=== PATIENT | female | born 1970 | race Caucasian/White ===

== ENCOUNTER → 2024-10-19 | Outpatient (CLI) | payer MEDICAID, SELFPAY ==
[2024-10-19 10:35] LABS: Bacteria 0 SEEN /hpf (None Seen); Mucous, Urine 0 SEEN /hpf (<or=2+); Red Blood Cells-Urine 0 SEEN /hpf (0-5); White Blood Cells 0 SEEN /hpf (0-5)
[2024-10-19 12:46] LABS: Absolute Lymphocyte Count 1.33 X10^3/uL (0.83-4.51); Absolute Neutrophil Count 4.8 X10^3/uL (2.0-7.7); Basophil# 0.04 X10^3/uL; Basophil% 0.6 % (0-1); Eosinophil# 0.18 X10^3/uL; Eosinophils% 2.6 % (0-5); Hematocrit 38.8 % (37-47); Hemoglobin 12.3 g/dL (12.0-15.0); Lymphocyte # 1.33 X10^3/ul (0.83-4.51); Lymphocyte % 19.3 % (19-41); Mean Corp Hgb Conc 31.7 g/dL (32-36); Mean Corpuscular Hgb 30.4 pg (27.0-32.0); Mean Corpuscular Volume 95.8 fL (81-99); Mean Platelet Vol. 9.5 fl (6.2-12.0); Monocyte# 0.54 X10^3/uL; Monocyte% 7.8 % (0-10); NRBC Flagged by Analyzer 0 % (0-5); Neutrophil # 4.79 X10^3/uL (2.7-7.7); Neutrophil % 69.4 % (47-70); Platelet Count 397 K/mm3 (150-450); RBC Distribution Width CV 13.2 % (11.6-14.6); RBC Distribution Width SD 46.6 fl (35.1-43.9); Red Blood Count 4.05 M/mm3 (4.2-5.4); White Blood Count 6.9 K/mm3 (4.4-11.0)
[2024-10-19 12:51] LABS: Color, Urine Yellow (Yellow); Glucose, Dipstick Normal (Normal); Ketone-Dipstick Negative (Negative); Leukocyte Esterase-Dipstick Negative /ul (Negative); Nitrite-Dipstick Negative (Negative); Occult Blood-Urine Negative /ul (Negative); Protein-Dipstick 15 mg/dl (Negative); Urine Bilirubin Dipstick Negative (Negative); Urine Clarity Clear (Clear); Urine Urobilinogen Normal (Normal)
[2024-10-19 12:58] LABS: Squamous Epithelial Cells - UA 0-5 SEEN /hpf (5-10)
[2024-10-19 13:44] LABS: ALB/GLOB Ratio 1.4 RATIO (0.9-2.4); AST(SGOT) 58 U/L (<=31); Alanine Aminotransfer ALT/SGPT 86 U/L (<=34); Albumin, Serum 4.3 g/dL (3.5-5.0); Alkaline Phosphatase 72 U/L (35-104); Anion Gap 12 (5-15); BUN 20 mg/dL (4-19); BUN/Creat Ratio 26.4 RATIO (10-20); Calcium,Total 9.6 mg/dL (7.6-11.0); Carbon Dioxide 26.9 mmol/L (21.0-32.0); Chloride 100 mmol/L (98-108); Cholesterol 178 mg/dL (<=200); Creatinine, Serum 0.75 mg/dL (0.70-1.20); EST Glomerular Filtration Rate 94 (>60); Globulin 3.1 g/dL (2.2-4.2); Glucose 96 mg/dL (70-99); High Density Lipoprotein 60 mg/dL; Low Density Lipoprotein Calc. 97 mg/dL; Potassium 3.9 mmol/L (3.3-5.1); Protein, Total 7.4 g/dL (5.9-8.4); Sodium Level 139 mmol/L (133-145); Total Bilirubin 0.22 mg/dL (0.00-1.30); Triglycerides 110 mg/dL; Very Low Density Lipoprotein 22 mg/dL (5-40); Vitamin B12 1530 pg/mL (180-914); Vitamin D,25 Hydroxy 79.4 ng/mL (30-100); cholesterol:hdl ratio screen 2.99
[2024-10-23 13:35] LABS: Hepatitis B Surface Antigen Nonreactive (Nonreactive); Hepatitis C Antibody Nonreactive (Nonreactive)
== END | disposition home or self-care (01) ==
LOC: MFPLAB 10:22
PROVIDERS: PCP Family Medicine; Referring Provider Family Medicine; Visit Provider Family Medicine
DX: Z00.00 Encounter for general adult medical examination without abnormal findings (principal); R53.83 Other fatigue
CPT/HCPCS: 86706; 36415; 80053; 80061; 81001; 82306; 82607; 84439; 84443; 85025; 86803; 87340

== ENCOUNTER → 2024-11-01 | Outpatient (CLI) | payer MEDICAID, SELFPAY ==
[2024-11-01 14:00] LABS: Hepatitis B Surface Antigen Nonreactive (Nonreactive); Hepatitis C Antibody Nonreactive (Nonreactive)
== END | disposition home or self-care (01) ==
LOC: MFPLAB 10:31
PROVIDERS: PCP Family Medicine; Referring Provider Family Medicine; Visit Provider Family Medicine
DX: R79.89 Other specified abnormal findings of blood chemistry (principal)
CPT/HCPCS: 36415; 86706; 86803; 87340

== ENCOUNTER → 2024-11-02 | Outpatient (CLI) | payer MEDICAID, SELFPAY ==
--- NOTE | 2024-11-02 11:09 | BI_ITS ---
EXAM: SCRN MAMM (CAD)W/BRIAN BILAT DATE: 11/02/2024 CLINICAL HISTORY: F, Age 54 y/o , SCREENING TECHNIQUE: SCRN MAMM (CAD)W/BRIAN BILAT COMPARISON: No priors available FINDINGS: TISSUE DENSITY: There are scattered areas of fibroglandular density. There are bilateral retropectoral saline breast implants. Bilateral Breast Mammographic Findings: No significant masses, calcifications or other abnormalities are identified. BI/SCRN MAMM (CAD)W/BRIAN BILAT IMPRESSION: There is no mammographic evidence of malignancy. OVERALL FINAL ASSESSMENT BI-RADS 1: NEGATIVE. RECOMMENDATION: Routine annual follow-up in 1 Year A letter with findings and recommendations will be mailed to the patient. Reading Location: [id number]
== END | disposition home or self-care (01) ==
LOC: OPBI 11:07
PROVIDERS: PCP Family Medicine; Referring Provider Family Medicine; Visit Provider Family Medicine
DX: Z12.31 Encounter for screening mammogram for malignant neoplasm of breast (principal)
CPT/HCPCS: 77063; 77067

== ENCOUNTER → 2024-11-10 | Outpatient (CLI) | payer MEDICAID, SELFPAY ==
--- NOTE | 2024-11-10 14:01 | CT_ITS ---
PROCEDURE: LOW DOSE CT LUNG SCREENING 11/10/2024 REASON FOR EXAM: SMOKER TECHNIQUE: LOW DOSE CT LUNG SCREENING Coronal and Sagittal reconstruction series were provided. One or more dose reduction techniques were used (e.g., Automated exposure control, adjustment of the mA and/or kV according to patient size, use of iterative reconstruction technique). REFERENCE LINK: [employer] Lung-RADS RADIATION DOSE SUMMARY: CTDlvol: 3 mGy DLP: 110 mGycm COMPARISON: No FINDINGS: Central airways are patent. Mild bronchial wall thickening. Well inflated lungs. No consolidation, effusion, or pneumothorax. On the left, no suspicious lung nodules. On the right, no suspicious lung nodules. Unremarkable base of neck and axilla. Normal heart size. Normal esophagus. No acute vascular pathology. Thoracic spine scoliosis and degeneration. No acute chest wall findings. No acute upper abdominal findings. CT/Low Dose CT Lung Screening IMPRESSION: No pulmonary nodules. Lung-RADS Category: 1 Other Significant Findings: Reading Location: [id number]
== END | disposition home or self-care (01) ==
LOC: CT 13:59
PROVIDERS: PCP Family Medicine; Referring Provider Family Medicine; Visit Provider Family Medicine
DX: Z87.891 Personal history of nicotine dependence (principal)
CPT/HCPCS: 71271

== ENCOUNTER → 2024-11-15 | Outpatient (CLI) | payer MEDICAID, SELFPAY ==
[2024-11-15 12:28] LABS: AST(SGOT) 26 U/L (<=31); Alanine Aminotransfer ALT/SGPT 21 U/L (<=34); Albumin, Serum 4.3 g/dL (3.5-5.0); Alkaline Phosphatase 58 U/L (35-104); Anion Gap 12 (5-15); BUN 17 mg/dL (4-19); BUN/Creat Ratio 21.6 RATIO (10-20); Calcium,Total 9.4 mg/dL (7.6-11.0); Carbon Dioxide 23.5 mmol/L (21.0-32.0); Chloride 102 mmol/L (98-108); Globulin 2.9 g/dL (2.2-4.2); Glucose 90 mg/dL (70-99); Potassium 4.1 mmol/L (3.3-5.1)
--- OUTSIDE RECORDS SUMMARY | 2024-11-15 19:14 | XMS RPT_ITS | CCD ---
Author Organization [facility]iniSyin Care Team Providers Care Aircraft Structure Mechanic Name Role Phone Nikia BARAHONA, Dr. Adal Nogueira Primary Care Provider Nikia BARAHONA, Dr. Adal Nogueira Attending Provider [phone] Nikia BARAHONA, Dr. Adal Nogueira Referring Provider Adal Montejo Referring Unavailable Adal Montejo Attending Unavailable Adal Montejo Primary Care Unavailable Adal Montejo Referring Unavailable Adal Montejo Attending Unavailable Adal Montejo Primary Care Unavailable Adal Montejo Referring Unavailable Adal Montejo Attending Unavailable Adal Montejo Primary Care Unavailable Adal Montejo Referring Unavailable Adal Montejo Attending Unavailable Adal Montejo Primary Care Unavailable MIKAELA BARAHONA, DR NORIEGA Attending Unavailjazz nogueira Problems Problem Classification Problem Date Documented Da te Episodic/Chronic Other screening for suspected conditions (not mental disorders or infectious disease) (4 sources) Encounter for screening mammogram for malignant neoplasm of breast; Translations: [Other specified abnormal findings of blood chemistry] Onset: 11-07-2024 Episodic Screening and history of mental health and substance abuse codes (1 source) Personal history of nicotine dependence; Translations: [Personal history of nicotine dependence] Onset: 11-10-2024 Episodic Results Test Name Value Interpretation Reference Range Facility Low Dose CT Lung Screeningon 11-10-[address] Lung Screening [facility] Imaging Services [address] [place], [place] [id number] Low Dose CT Lung Screening MR#: [id number] Acct: [id number] Name: REI MARK Rep #: [id number] : 1970 F 54 From: Rodrigo Lucas MD PCP: Dr. Adal Montejo MD Status: REG CLI Study: Low Dose CT Lung Screening Date of Exam: 11/10 Exam# [id number] Ordering Dr: Adal Montejo MD PROCEDURE: LOW DOSE CT LUNG SCREENING 11/10/2024 REASON FOR EXAM: SMOKER TECHNIQUE: LOW DOSE CT LUNG SCREENING Coronal and Sagittal reconstruction series were provided. One or more dose reduction techniques were used (e.g., Automated exposure control, adjustment of the mA and/or kV according to patient size, use of iterative reconstruction technique). REFERENCE LINK: [facility] Lung-RADS RADIATION DOSE SUMMARY: CTDlvol: 3 mGy DLP: 110 mGycm COMPARISON: No FINDINGS: Central airways are patent. Mild bronchial wall thickening. Well inflated lungs. No consolidation, effusion, or pneumothorax. On the left, no suspicious lung nodules. On the right, no suspicious lung nodules. Unremarkable base of neck and axilla. Normal heart size. Normal esophagus. No acute vascular pathology. Thoracic spine scoliosis and degeneration. No acute chest wall findings. No acute upper abdominal findings. CT/Low Dose CT Lung Screening IMPRESSION: No pulmonary nodules. Lung-RADS Category: 1 Other Significant Findings: Reading Location: [facility]2 CC: Dr. Adal Montejo MD Engineering Group Leader: Signed [facility] Breast imaging reportOrdered By: Marcela Mott on 11-03-2024 Study report [facility] Imaging Services [address] [place] [address] SCRN MAMM (CAD)W/BRIAN BILAT MR#: [id number] Acct: [id number] Name: REI MARK Rep #: [id number] : 1970 F 54 From: Mitzi Mott MD PCP: Dr. Adal Montejo MD Status: RE G CLI Study:SCRN MAMM (CAD)W/BRIAN BILAT Date of Exa m: 11/02/24 Exam# [id number] Ordering Dr: Adal Montejo MD EXAM: SCRN MAMM (CAD)W/BRIAN BILAT DATE: 11/02/2024 CLINICAL HISTORY: F, Age 54 y/o , SCREENING TECHNIQUE: SCRN MAMM (CAD)W/BRIAN BILAT COMPARISON: No priors available FINDINGS: TISSUE DENSITY: There are scattered areas of fibroglandular density. There are bilateral retropectoral saline breast implants. Bilateral Breast Mammographic Findings: No significant masses, calcifications or other abnormalities are identified. BI/SCRN MAMM (CAD)W/BRIAN BILAT IMPRESSION: There is no mammographic evidence of malignancy. OVERALL FINAL ASSESSMENT BI-RADS 1: NEGATIVE. RECOMMENDATION: Routine annual follow-up in 1 Year A letter with findings and recommendations will be mailed to the patient. Reading Location: [facility] CC: Dr. Adal Montejo MD ~ Engineering Group Leader: Signed [facility] SCRN MAMM (CAD)W/BRIAN BILATo n 11-02-2024 SCRN MAMM (CAD)W/BRIAN BILAT [facility] Imaging Services [address] [place], [place] [address] SCRN MAMM (CAD)W/BRIAN BILAT MR#: [id number] Acct: [id number] Name: REI AMRK Rep #: [id number] : 1970 F 54 From: Marcela Mott MD PCP: Dr. Adal Montejo MD Status: [facility] Study: SCRN MAMM (CAD)W/BRIAN BILAT Date of Exam: 10/24 Exam# [id number] Ordering Dr: Adal Montejo MD EXAM: SCRN MAMM (CAD)W/BRIAN BILAT DATE: 11/02/2024 CLINICAL HISTORY: F, Age 54 y/o , SCREENING TECHNIQUE: SCRN MAMM (CAD)W/BRIAN BILAT COMPARISON: No priors available FINDINGS: TISSUE DENSITY: There are scattered areas of fibroglandular density. There are bilateral retropectoral saline breast implants. Bilateral Breast Mammographic Findings: No significant masses, calcifications or other abnormalities are identified. BI/SCRN MAMM (CAD)W/BRIAN BILAT IMPRESSION: There is no mammographic evidence of malignancy. OVERALL FINAL ASSESSMENT BI-RADS 1: NEGATIVE. RECOMMENDATION: Routine annual follow-up in 1 Year A letter with findings and recommendations will be mailed to the patient. Reading Location: [id number] CC: Dr. Adal Montejo MD Engineering Group Leader: Signed [facility] Hepatitis B Surface Antibody on 11-01-2024 HEP B Surf Ab Non-Reactive [facility] Comment on above: Result Comment: <8.5 mIU/mL: Non-Reactive 8.5<= x <11.5 mIU/mL: Indeterminate >=11.5 mIU/mL: Reactive Non Reactive: Inconsistent with immunity less than <10 mIU/mL Reactive: Consistent with immunity greater than or equal to 10 mIU/mL Performed By: #### L 506.1001, L503.0106, L3890.6301, L3890.6102 #### [facility] [address] [facility] [place], [address] Hepatitis C Antibodyon 11-01 Hepatitis C Ab Non-Reactive Normal Nonreactive [facility] Comment on above: Result Comment: Reac tive: Presumptive evidence of antibodies to HCV. Follow CDC recommendations for supplemental testing. Non-Reactive: Antibodies to HCV were not detected; does not exclude the possibility of exposure to HCV Reactive Results are presumptive evidence of antibodies to HCV. Follow CDC recommendations for supplemental testing. Order confirmation testing: HCV Quant by PCR testing - HCVPCR #[id number] Non Reactive: < 0.8 Equivocal: >/= 0.8 to < 1.0 Reactive: >/= 1.0 The CDC requires that a reactive/equivocal HCV antibody result be sent out for confirmation. HCV Quant by PCR testing. Performed By: #### L 506.1001, L503.0106, L3890.6301, L3890.6102 #### [facility] [address] [place], [place], [address] L3890.6102on 11-01-2024 HEP B Surf Ag Non-Reactive Normal Nonreactive [facility] Comment on above: Result Comment: Reac tive: Presumptive evidence of HBV. Repeatedly reactive samples must be confirmed using a neutralization test ([employer] HBsAg Confirmatory Test) Non-Reactive: HBsAg not detected; does not exclude the possibility of exposure to HBV Performed By: #### L 506.1001, L503.0106, L3890.6301, L3890.6102 #### [facility] [address] [place], [address] Laboratory - Microbiology an d Antimicrobial susceptibilityOrdered By: Adal Montejo on 11-01-2024 HBV surface Ag Ql (S) Non-Reactive Nonreactive [facility] Comment on above: Reactive: Presumptiv e evidence of HBV. Repeatedly reactive samples must be confirmed using a neutralization test ([employer] HBsAg Confirmatory Test)Non-Reactive: HBsAg not detected; does not exclude the possibility of exposure to HBV Serum hepatitis B virus surf [place] antibody detectionOrdered By: Adal Montejo on 11-01-2024 HBV surface Ab Ql (S) Non-Reactive [facility] Comment on above: <8.5 mIU/mL: Non-Sangeeta ctive8.5<= x <11.5 mIU/mL: Indeterminate>=11.5 mIU/mL: Reactive Non Reactive: Inconsistent with immunity less than <10 mIU/mL Reactive: Consistent with immunity greater than or equal to 10 mIU/mL Hepatitis C Antibodyon 10-23 Hepatitis C Ab Non-Reactive Normal Nonreactive [facility] Comment on above: Order Comment: Order Date: 10/19/24 Order Info: 0786-1 - CMP Order Info: 91019-2 - LIPID Order Info: 3016-3 - TSH Order Info: 3024-7 - T4F Result Comment: Reac tive: Presumptive evidence of antibodies to HCV. Follow CDC recommendations for supplemental testing. Non-Reactive: Antibodies to HCV were not detected; does not exclude the possibility of exposure to HCV Reactive Results are presumptive evidence of antibodies to HCV. Follow CDC recommendations for supplemental testing. Order confirmation testing: HCV Quant by PCR testing - HCVPCR #[id number] Non Reactive: < 0.8 Equivocal: >/= 0.8 to < 1.0 Reactive: >/= 1.0 The CDC requires that a reactive/equivocal HCV antibody result be sent out for confirmation. HCV Quant by PCR testing. Performed By: #### L 506.1001, L503.0106, L3890.6301, L3890.6102 #### [facility] [address] [place], [place], [address] L3890.6102on 10-23-2024 HEP B Surf Ag Non-Reactive Normal Nonreactive [facility] Comment on above: Order Comment: Order Date: 10/19/24 Order Info: 0786-1 - CMP Order Info: 03591-3 - LIPID Order Info: 3016-3 - TSH Order Info: 3024-7 - T4F Result Comment: Reac tive: Presumptive evidence of HBV. Repeatedly reactive samples must be confirmed using a neutralization test ([employer] HBsAg Confirmatory Test) Non-Reactive: HBsAg not detected; does not exclude the possibility of exposure to HBV Performed By: #### L 506.1001, L503.0106, L3890.6301, L3890.6102 #### [facility] [address] [place], [place], [address] Absolute lymphocyte countOrd ered By: Adal Montejo on 10-19-2024 Lymphocytes Auto (Unsp spec) [#/Vol] 1.33 10*3/uL 0.83-4.51 [facility] Absolute neutrophil countOrd ered By: Adal Montejo on 10-19-2024 Neutrophils (Bld) [#/Vol] 4.8 10*3/uL 2.0-7.7 [facility] Anion gap in Serum or Plasma Ordered By: Adal Montejo on 10-19-2024 Anion gap [Moles/Vol] 12 mmol/L 5-15 [facility] Automated lymphocyte count a s percentage of total leukocytesOrdered By: Adal Montejo on 10-19-2024 Lymphocytes/100 WBC Auto (Unsp spec) 19.3 % 19- [facility] BUN/creatinine ratioOrdered By: Adal Montejo on 10-19-2024 Urea nitrogen/Creatinine [Mass ratio] 26.4 mg/mg High 10-20 [facility] Basophil percentageOrdered B y: Adal Montejo on 10-19-2024 Basophils/100 WBC (Bld) 0.6 % 0-1 [facility] Bilirubin Test strip Ql (U)O rdered By: Adal Montejo on 10-19-2024 Bilirubin Ql (U) Negative Negative [facility] Bilirubin, totalOrdered By: Adal Montejo on 10-19-2024 Bilirubin [Mass/Vol] 0.22 mg/dL 0.00-1.30 [facility] CBC W/Diff, Automatedon 09-25 Absolute Lymph 1.33 X10 3/uL Normal 0.83-4.51 [facility] Comment on above: Order Comment: Order Date: 10/19/24 Order Info: 0184-1 - CBCD Performed By: #### L 100.0100, L501.9520, L500.4100, L506.0400, L500.4050 #### [facility] [address] [place], [address] Absolute Neut 4.8 X10 3/uL Normal 2.0-7.7 [facility] Comment on above: Order Comment: Order Date: 10/19/24 Order Info: 0184-1 - CBCD Performed By: #### L 100.0100, L501.9520, L500.4100, L506.0400, L500.4050 #### [facility] [address] [place], [address] Basophils/100 WBC (Bld) 0.6 % Normal 0-1 [facility] Comment on above: Order Comment: Order Date: 10/19/24 Order Info: 0184-1 - CBCD Performed By: #### L 100.0100, L501.9520, L500.4100, L506.0400, L500.4050 #### [facility] [address] [place], [address] Eosinophils/100 WBC (Bld) 2.6 % Normal 0-5 [facility] Comment on above: Order Comment: Order Date: 10/19/24 Order Info: 0184-1 - CBCD Performed By: #### L 100.0100, L501.9520, L500.4100, L506.0400, L500.4050 #### [facility] [address] [place], [address] Erythrocyte distribution width (RBC) [Ratio] 13.2 % Normal 11.6-14.6 [facility] Comment on above: Order Comment: Order Date: 10/19/24 Order Info: 0184-1 - CBCD Performed By: #### L 100.0100, L501.9520, L500.4100, L506.0400, L500.4050 #### [facility] [address] [place], [address] Hematocrit (Bld) [Volume fraction] 38.8 % Normal 37-47 [facility] Comment on above: Order Comment: Order Date: 10/19/24 Order Info: 0184-1 - CBCD Performed By: #### L 100.0100, L501.9520, L500.4100, L506.0400, L500.4050 #### [facility] [address] [place], [address] Hemoglobin (Bld) [Mass/Vol] 12.3 g/dL Normal 12.0-15.0 [facility] Comment on above: Order Comment: Order Date: 10/19/24 Order Info: 0184-1 - CBCD Performed By: #### L 100.0100, L501.9520, L500.4100, L506.0400, L500.4050 #### [facility] [address] [place], [address] IG% 0.300 Normal 0.0-0.9 [facility] Comment on above: Order Comment: Order Date: 10/19/24 Order Info: 0184-1 - CBCD Result Comment: IG% - Immature Granulocytes (promyelocytes, myelocytes and metamyelocytes) > 1% indicates that a LEFT SHIFT is Present. Performed By: #### L 100.0100, L501.9520, L500.4100, L506.0400, L500.4050 #### [facility] [address] [place], [address] Lymphocytes/100 WBC (Bld) 19.3 % Normal 19-41 [facility] Comment on above: Order Comment: Order Date: 10/19/24 Order Info: 018- - CBCD Performed By: #### L 100.0100, L501.9520, L500.4100, L506.0400, L500.4050 #### [facility] [address] [place], [address] MCH (RBC) [Entitic mass] 30.4 pg Normal 27.0-32.0 [facility] Comment on above: Order Comment: Order Date: 10/19/24 Order Info: 018- - CBCD Performed By: #### L 100.0100, L501.9520, L500.4100, L506.0400, L500.4050 #### [facility] [address] [place], [address] MCHC (RBC) [Mass/Vol] 31.7 g/dL Low 32-36 [facility] Comment on above: Order Comment: Order Date: 10/19/24 Order Info: 018- - CBCD Performed By: #### L 100.0100, L501.9520, L500.4100, L506.0400, L500.4050 #### [facility] [address] [place], [address] MCV (RBC) [Entitic vol] 95.8 fL Normal 81-99 [facility] Comment on above: Order Comment: Order Date: 10/19/24 Order Info: 018- - CBCD Performed By: #### L 100.0100, L501.9520, L500.4100, L506.0400, L500.4050 #### [facility] [address] [place], [address] Monocytes/100 WBC (Bld) 7.8 % Normal 0-10 [facility] Comment on above: Order Comment: Order Date: 10/19/24 Order Info: 0184-1 - CBCD Performed By: #### L 100.0100, L501.9520, L500.4100, L506.0400, L500.4050 #### [facility] [address] [place], [address] Neutrophils/100 WBC (Bld) 69.4 % Normal 47-70 [facility] Comment on above: Order Comment: Order Date: 10/19/24 Order Info: 0184- - CBCD Performed By: #### L 100.0100, L501.9520, L500.4100, L506.0400, L500.4050 #### [facility] [address] [place], [address] Nucleated RBC (Bld) [#/Vol] 0 10*3/uL Normal 0-5 [facility] Comment on above: Order Comment: Order Date: 10/19/24 Order Info: 0184-1 - CBCD Performed By: #### L 100.0100, L501.9520, L500.4100, L506.0400, L500.4050 #### [facility] [address] [place], [address] Platelet mean volume (Bld) [Entitic vol] 9.5 fL Normal 6.2-12.0 [facility] Comment on above: Order Comment: Order Date: 10/19/24 Order Info: 0184-1 - CBCD Performed By: #### L 100.0100, L501.9520, L500.4100, L506.0400, L500.4050 #### [facility] [address] [place], [address] Platelets (Bld) [#/Vol] 397 10*3/uL Normal 150-450 [facility] Comment on above: Order Comment: Order Date: 10/19/24 Order Info: 0184-1 - CBCD Performed By: #### L 100.0100, L501.9520, L500.4100, L506.0400, L500.4050 #### [facility] [address] [place], [address] RBC (Bld) [#/Vol] 4.05 10*6/uL Low 4.2-5.[address] [facility] Comment on above: Order Comment: Order Date: 10/19/24 Order Info: 0184-1 - CBCD Performed By: #### L 100.0100, L501.9520, L500.4100, L506.0400, L500.4050 #### [facility] [address] [place], [address] RDW SD 46.6 fl High 35.1-43.9 [facility] Comment on above: Order Comment: Order Date: 10/19/24 Order Info: 0184-1 - CBCD Performed By: #### L 100.0100, L501.9520, L500.4100, L506.0400, L500.4050 #### [facility] [address] [place], [address] WBC (Bld) [#/Vol] 6.9 10*3/uL Normal 4.4-11.0 [facility] Comment on above: Order Comment: Order Date: 10/19/24 Order Info: 0184-1 - CBCD Performed By: #### L 100.0100, L501.9520, L500.4100, L506.0400, L500.4050 #### [facility] [address] [place], [address] Calculated very low density lipoprotein (VLDL) cholesterol measurementOrdered By: Adal Montejo on 10-19-2024 Calculated very low density lipoprotein (VLDL) cholesterol measurement 22 mg/dL 5-40 [facility] Carbon dioxide, total [Moles /volume] in Central venous bloodOrdered By: Adal Montejo on 10-19-2024 CO2 [Moles/Vol] 26.9 mmol/L 21.0-32.0 [facility] Chloride assayOrdered By: Amy Montejo on 10-19-2024 Chloride [Moles/Vol] 100 mmol/L 98-108 [facility] Comprehensive Metabolic Prof ilon 10-19-2024 Albumin [Mass/Vol] 4.3 g/dL Normal 3.5-5.0 [facility] Comment on above: Order Comment: Order Date: 10/19/24 Order Info: 785- - CMP Order Info: - LIPID Order Info: 3015-06 - TSH Order Info: 7 - T4F Performed By: #### L 100.0100, L501.9520, L500.4100, L506.0400, L500.4050 #### [facility] [address] [place], [place], [address] Albumin/Globulin [Mass ratio] 1.4 {ratio} Normal 0.9-2.4 [facility] Comment on above: Order Comment: Order Date: 10/19/24 Order Info: 785-04 - CMP Order Info: - LIPID Order Info: 3 - TSH Order Info: 3027 - T4F Performed By: #### L 100.0100, L501.9520, L500.4100, L506.0400, L500.4050 #### [facility] [address] [place], [place], [address] ALK PHOS 72 U/L Normal 35-104 [facility] Comment on above: Order Comment: Order Date: 10/19/24 Order Info: 07 - CMP Order Info: 35331-4 - LIPID Order Info: 3 - TSH Order Info: 30247 - T4F Performed By: #### L 100.0100, L501.9520, L500.4100, L506.0400, L500.4050 #### [facility] [address] [facility] [place], [address] ALT [Catalytic activity/Vol] 86 U/L High <=34 [facility] Comment on above: Order Comment: Order Date: 10/19/24 Order Info: 0786-1 - CMP Order Info: 49540-8 - LIPID Order Info: 3016-3 - TSH Order Info: 3024-7 - T4F Performed By: #### L 100.0100, L501.9520, L500.4100, L506.0400, L500.4050 #### [facility] [address] [place], [address] AST [Catalytic activity/Vol] 58 U/L High <=31 [facility] Comment on above: Order Comment: Order Date: 10/19/24 Order Info: 785-1 - CMP Order Info: 72562-2 - LIPID Order Info: 3015-3 - TSH Order Info: 3024-7 - T4F Performed By: #### L 100.0100, L501.9520, L500.4100, L506.0400, L500.4050 #### [facility] [address] [place], [address] Bilirubin [Mass/Vol] 0.22 mg/dL Normal 0.00-1.30 [facility] Comment on above: Order Comment: Order Date: 10/19/24 Order Info: 785-1 - CMP Order Info: 22251-2 - LIPID Order Info: 3016-3 - TSH Order Info: 3024-7 - T4F Performed By: #### L 100.0100, L501.9520, L500.4100, L506.0400, L500.4050 #### [facility] [address] [place], [address] BUN/CRE 26.4 RATIO High 10-20 [facility] Comment on above: Order Comment: Order Date: 10/19/24 Order Info: 86-1 - CMP Order Info: 32541-4 - LIPID Order Info: 3016-3 - TSH Order Info: 3024-7 - T4F Performed By: #### L 100.0100, L501.9520, L500.4100, L506.0400, L500.4050 #### [facility] [address] [place], [address] Calcium [Mass/Vol] 9.6 mg/dL Normal 7.6-11.0 [facility] Comment on above: Order Comment: Order Date: 10/19/24 Order Info: 86-1 - CMP Order Info: 60320-6 - LIPID Order Info: 3 - TSH Order Info: 7 - T4F Performed By: #### L 100.0100, L501.9520, L500.4100, L506.0400, L500.4050 #### [facility] [address] [place], [address] Chloride [Moles/Vol] 100 mmol/L Normal 98-108 [facility] Comment on above: Order Comment: Order Date: 10/19/24 Order Info: 785-1 - CMP Order Info: 73759-6 - LIPID Order Info: 3 - TSH Order Info: 7 - T4F Performed By: #### L 100.0100, L501.9520, L500.4100, L506.0400, L500.4050 #### [facility] [address] [place], [address] CO2 [Moles/Vol] 26.9 mmol/L Normal 21.0-32.0 [facility] Comment on above: Order Comment: Order Date: 10/19/24 Order Info: 86-1 - CMP Order Info: 39584-7 - LIPID Order Info: 3016-3 - TSH Order Info: 3024-7 - T4F Performed By: #### L 100.0100, L501.9520, L500.4100, L506.0400, L500.4050 #### [facility] [address] [place], [address] Creatinine [Mass/Vol] 0.75 mg/dL Normal 0.70-1.20 [facility] Comment on above: Order Comment: Order Date: 10/19/24 Order Info: 07- - CMP Order Info: - LIPID Order Info: 3 - TSH Order Info: 7 - T4F Performed By: #### L 100.0100, L501.9520, L500.4100, L506.0400, L500.4050 #### [facility] [address] [place], [address] GAP 12 Normal 5-15 [facility] Comment on above: Order Comment: Order Date: 10/19/24 Order Info: 785- - CMP Order Info: - LIPID Order Info: 3 - TSH Order Info: 3023-10 - T4F Performed By: #### L 100.0100, L501.9520, L500.4100, L506.0400, L500.4050 #### [facility] [address] [place], [address] GFR/1.73 sq M.predicted among non-blacks MDRD (S/P/Bld) [Vol rate/Area] 94 mL/min/{1.73_m2} Normal >[address] [facility] Comment on above: Order Comment: Order Date: 10/19/24 Order Info: 07 - CMP Order Info: - LIPID Order Info: 3015-06 - TSH Order Info: 7 - T4F Result Comment: mL/m in/1.73m2 CKD-EPI Creatinine Equation (2020) Performed By: #### L 100.0100, L501.9520, L500.4100, L506.0400, L500.4050 #### [facility] [address] [place], [address] Globulin (S) [Mass/Vol] 3.1 g/dL Normal 2.2-4.2 [facility] Comment on above: Order Comment: Order Date: 10/19/24 Order Info: 785-1 - CMP Order Info: 16333-3 - LIPID Order Info: 3 - TSH Order Info: 3024-7 - T4F Performed By: #### L 100.0100, L501.9520, L500.4100, L506.0400, L500.4050 #### [facility] [address] [place], [address] Glucose [Mass/Vol] 96 mg/dL Normal 70-99 [facility] Comment on above: Order Comment: Order Date: 10/19/24 Order Info: 785- - CMP Order Info: - LIPID Order Info: 3 - TSH Order Info: 3024-7 - T4F Performed By: #### L 100.0100, L501.9520, L500.4100, L506.0400, L500.4050 #### [facility] [address] [place], [address] Potassium [Moles/Vol] 3.9 mmol/L Normal 3.3-5.1 [facility] Comment on above: Order Comment: Order Date: 10/19/24 Order Info: 785- - CMP Order Info: - LIPID Order Info: 3 - TSH Order Info: 3024-7 - T4F Performed By: #### L 100.0100, L501.9520, L500.4100, L506.0400, L500.4050 #### [facility] [address] [place], [address] Sodium [Moles/Vol] 139 mmol/L Normal 133-145 [facility] Comment on above: Order Comment: Order Date: 10/19/24 Order Info: 86-1 - CMP Order Info: 70007-9 - LIPID Order Info: 30163 - TSH Order Info: 3024-7 - T4F Performed By: #### L 100.0100, L501.9520, L500.4100, L506.0400, L500.4050 #### [facility] [address] [place], [address] T PROT 7.4 g/dL Normal 5.9-8.4 [facility] Comment on above: Order Comment: Order Date: 10/19/24 Order Info: 0786-1 - CMP Order Info: 87513-7 - LIPID Order Info: 3016-3 - TSH Order Info: 7 - T4F Performed By: #### L 100.0100, L501.9520, L500.4100, L506.0400, L500.4050 #### [facility] [facility] [address] [place], [address] Urea nitrogen [Mass/Vol] 20 mg/dL High 4-19 [facility] Comment on above: Order Comment: Order Date: 10/19/24 Order Info: [id number] - CMP Order Info: [id number] - LIPID Order Info: 3 - TSH Order Info: [id number] - T4F Performed By: #### L 100.0100, L501.9520, L500.4100, L506.0400, L500.4050 #### [facility] [address] [place], [address] Eosinophil percentageOrdered By: Adal Montejo on 10-19-2024 Eosinophils/100 WBC (Bld) 2.6 % 0-5 [facility] Erythrocyte distribution wid th ratioOrdered By: Adal Montejo on 10-19-2024 Erythrocyte distribution width (RBC) [Ratio] 13.2 % 11.6-14.6 [facility] Erythrocyte distribution wid th standard deviationOrdered By: Adal Montejo on 10-19-2024 Erythrocyte distribution width (RBC) [Ratio] 46.6 fl High 35.1-43.9 [facility] Glomerular filtration rate ( GFR) estimation/1.73 sq m using serum, plasma, or whole bOrdered By: Adal Montejo on 10-19-2024 GFR/1.73 sq M.predicted among non-blacks MDRD (S/P/Bld) [Vol rate/Area] 94 mL/min/{1.73_m2} >[address] [facility] Comment on above: mL/min/1.73m2 CKD-EP I Creatinine Equation (2020) Hematocrit Auto (Bld) [Volum e fraction]Ordered By: Adal Montejo on 10-19-2024 Hematocrit (Bld) [Volume fraction] 38.8 % 37-47 [facility] Hemoglobin measurementOrdere d By: Adal Montejo on 10-19-2024 Hemoglobin (Bld) [Mass/Vol] 12.3 g/dL 12.0-15.0 [facility] Immature granulocytes/100 WB C Auto (Bld)Ordered By: Adal Montejo on 10-19-2024 Immature granulocytes/100 WBC (Bld) 0.300 % 0.0-0.9 [facility] Comment on above: IG% - Immature Granu locytes (promyelocytes, myelocytes and metamyelocytes) > 1% indicates that a LEFT SHIFT is Present. Ketones Test strip Ql (U)Ord ered By: Adal Montejo on 10-19-2024 Ketones Ql (U) Negative Negative [facility] LDL calc ser/plasOrdered By: Adal Montejo on 10-19-2024 Cholesterol in LDL [Mass/Vol] 97 mg/dL [facility] Comment on above: Vaulwqhxqj=466-928 m g/dL & Higher Cchy=477 mg/dL or greater Laboratory - Chemistry and C hemistry - challengeOrdered By: Adal Montejo on 10-19-2024 AST [Catalytic activity/Vol] 58 U/L High <32 [facility] - Microbiology an d Antimicrobial susceptibilityOrdered By: Adal Montejo on 10-19-2024 HBV surface Ag Ql (S) Non-Reactive Nonreactive [facility] Comment on above: Reactive: Presumptiv e evidence of HBV. Repeatedly reactive samples must be confirmed using a neutralization test ([employer] HBsAg Confirmatory Test)Non-Reactive: HBsAg not detected; does not exclude the possibility of exposure to HBV Lipid Profileon 10-19-2024 CHOL:HDL 2.99 Normal [facility] Comment on above: Order Comment: Order Date: 10/19/24 Order Info: [id number] - CMP Order Info: [id number] - LIPID Order Info: [id number] - TSH Order Info: [id number] - T4F Performed By: #### L 100.0100, L501.9520, L500.4100, L506.0400, L500.4050 #### [facility] [address] [place], [address] Cholesterol [Mass/Vol] 178 mg/dL Normal <=[address] [facility] Comment on above: Order Comment: Order Date: 10/19/24 Order Info: [id number] - CMP Order Info: [id number] - LIPID Order Info: [id number] - TSH Order Info: [id number] T4F Result Comment: Chol esterol level, Desirable <200 mg/dL Borderline high cholesterol 200-239 mg/dL High cholesterol >=240 mg/dL Recommendations of the NCEP Adult Treatment Panel for the following risk-cutoff thresholds for the [place] population. Performed By: #### L 100.0100, L501.9520, L500.4100, L506.0400, L500.4050 #### [facility] [address] [place], [address] Cholesterol in HDL [Mass/Vol] 60 mg/dL Normal [facility] Comment on above: Order Comment: Order Date: 10/19/24 Order Info: [id number] - CMP Order Info: [id number] - LIPID Order Info: [id number] - TSH Order Info: 3023-10 T4F Result Comment: Peggy onal Cholesterol Education Program (NCEP) guidelines: <40 mg/dL: Low HDL-cholesterol (major risk factor for CHD) >= 60 mg/dL: High HDL-cholesterol (negative risk factor for CHD) HDL-cholesterol is affected by a number of factors, e.g. smoking, exercise, hormones, sex and age. Performed By: #### L 100.0100, L501.9520, L500.4100, L506.0400, L500.4050 #### [facility] [address] [place], [address] Cholesterol in LDL [Mass/Vol] 97 mg/dL Normal [facility] Comment on above: Order Comment: Order Date: 10/19/24 Order Info: [id number] - CMP Order Info: - LIPID Order Info: [id number] - TSH Order Info: 3023-10 - T4F Result Comment: Bord spzjeb=881-628 mg/dL Higher Qsso=451 mg/dL or greater Performed By: #### L 100.0100, L501.9520, L500.4100, L506.0400, L500.4050 #### [facility] [address] [place], [address] Cholesterol in VLDL [Mass/Vol] 22 mg/dL Normal 5-40 [facility] Comment on above: Order Comment: Order Date: 10/19/24 Order Info: 07- - CMP Order Info: - LIPID Order Info: [id number] - TSH Order Info: 3023-10 - T4F Performed By: #### L 100.0100, L501.9520, L500.4100, L506.0400, L500.4050 #### [facility] [address] [place], [address] Triglyceride [Mass/Vol] 110 mg/dL Normal [facility] Comment on above: Order Comment: Order Date: 10/19/24 Order Info: [id number] - CMP Order Info: - LIPID Order Info: 3 - TSH Order Info: 7 - T4F Result Comment: The drugs N-Acetylcysteine and Metamizole may falsely depress this assay. Normal range: <150 mg/dL Borderline High: 150-199 mg/dL High: 200-499 mg/dL Very High: >500 mg/dL Performed By: #### L 100.0100, L501.9520, L500.4100, L506.0400, L500.4050 #### [facility] [address] [place], [address] MCV (mean corpuscular volume ) determinationOrdered By: Adal Montejo on 10-19-2024 MCV (RBC) [Entitic vol] 95.8 fL 81-99 [facility] Mean corpuscular hemoglobin (MCH) determinationOrdered By: Adal Montejo on 10-19-2024 MCH (RBC) [Entitic mass] 30.4 pg 27.0-32.0 [facility] Mean corpuscular hemoglobin concentration (MCHC) determinationOrdered By: Adal Montejo on 10-19-2024 MCHC (RBC) [Mass/Vol] 31.7 g/dL Low 32-36 [facility] Mean platelet volume determi nationOrdered By: Adal Montejo on 10-19-2024 Platelet mean volume (Bld) [Entitic vol] 9.5 fL 6.2-12.0 [facility] Microscopic analysis of urin e for red blood cells (RBC)Ordered By: Adal Montejo on 10-19-2024 Microscopic analysis of urine for red blood cells (RBC) 0 SEEN /hpf 0-5 [facility] Monocyte percentageOrdered B y: Adal Montejo on 10-19-2024 Monocytes/100 WBC (Bld) 7.8 % 0-10 [facility] Mucus LM Ql (Urine sed)Order ed By: Adal Montejo on 10-19-2024 Mucus Ql (Urine sed) 0 SEEN /hpf [facility] Neutrophil percentageOrdered By: Adal Montejo on 10-19-2024 Neutrophils/100 WBC (Bld) 69.4 % 47-70 [facility] Nitrite Test strip Ql (U)Ord ered By: Adal Montejo on 10-19-2024 Nitrite Ql (U) Negative Negative [facility] Nucleated red blood cell per centageOrdered By: Adal Montejo on 10-19-2024 Nucleated RBC/100 WBC (Bld) [Ratio] 0 % 0-5 [facility] Platelet countOrdered By: Amy Montejo on 10-19-2024 Platelets (Bld) [#/Vol] 397 10*3/uL 150-450 [facility] Potassium measurement (mass/ volume)Ordered By: Adal Montejo on 10-19-2024 Potassium (Unsp spec) [Mass/Vol] 3.9 mmol/L 3.3-5.1 [facility] Protein Test strip Ql (U)Ord ered By: Adal Montejo on 10-19-2024 Protein Ql (U) 15 mg/dl High Negative [facility] RBC Auto (Bld) [#/Vol]Ordere d By: Adal Montejo on 10-19-2024 RBC (Bld) [#/Vol] 4.05 10*6/uL Low 4.2-5.[address] [facility] Screening total cholesterol/ high density lipoprotein (HDL) cholesterol ratioOrdered By: Adal Montejo on 10-19-2024 Cholesterol.total/Cholest júnior in HDL [Mass ratio] 2.99 {ratio} [facility] Serum creatinine measurement (mass/volume)Ordered By: Adal Montejo on 10-19-2024 Creatinine [Mass/Vol] 0.75 mg/dL 0.70-1.20 [facility] Serum globulin measurementOr dered By: Adal Montejo on 10-19-2024 Globulin (S) [Mass/Vol] 3.1 g/dL 2.2-4.2 [facility] Serum glucose measurement (m ass/volume)Ordered By: Adal Montejo on 10-19-2024 Glucose [Mass/Vol] 96 mg/dL 70-99 [facility] Serum or plasma alanine oliveira otransferase (ALT) measurementOrdered By: Adal Montejo on 10-19-2024 ALT [Catalytic activity/Vol] 86 U/L High <35 [facility] Serum or plasma albumin janey urement (mass/volume)Ordered By: Adal Montejo on 10-19-2024 Albumin [Mass/Vol] 4.3 g/dL 3.5-5.0 [facility] Serum or plasma albumin/glob ulin mass ratioOrdered By: Adal Montejo on 10-19-2024 Albumin/Globulin [Mass ratio] 1.4 {ratio} 0.9-2.4 [facility] Serum or plasma alkaline mechelle sphatase measurementOrdered By: Adal Montejo on 10-19-2024 ALP [Catalytic activity/Vol] 72 U/L 35-104 [facility] Serum or plasma calcium janey urement (mass/volume)Ordered By: Adal Montejo on 10-19-2024 Calcium [Mass/Vol] 9.6 mg/dL 7.6-11.0 [facility] Serum or plasma cholesterol in HDL measurement (mass/volume)Ordered By: Adal Montejo on 10-19-2024 Cholesterol in HDL [Mass/Vol] 60 mg/dL >40 [facility] Comment on above: National Cholesterol Education Program (NCEP) guidelines:<40 mg/dL: Low HDL-cholesterol (major risk factor for CHD)>= 60 mg/dL: High HDL-cholesterol (negative risk factor for CHD)HDL-cholesterol is affected by a number of factors, e.g. smoking, exercise, hormones, sex and age. Serum or plasma cholesterol measurement (mass/volume)Ordered By: Adal Montejo on 10-19-2024 Cholesterol [Mass/Vol] 178 mg/dL <[address] [facility] Comment on above: Cholesterol level, D esirable <200 mg/dLBorderline high cholesterol 200-239 mg/dLHigh cholesterol >=240 mg/dLRecommendations of the NCEP Adult Treatment Panel for the following risk-cutoff thresholds for the [place] population. Serum or plasma urea nitroge n measurement (mass/volume)Ordered By: Adal Montejo on 10-19-2024 Urea nitrogen [Mass/Vol] 20 mg/dL High 4-19 [facility] Sodium levelOrdered By: Adal Montejo on 10-19-2024 Sodium [Moles/Vol] 139 mmol/L 133-145 [facility] Squamous epithelial cells de tection in urine sediment by light microscopyOrdered By: Adal Montejo on 10-19-2024 Epithelial cells.squamous LM Ql (Urine sed) 0-5 SEEN /hpf 5-10 [facility] T4 Free Directon 10-19-2024 T4 FREE DIRECT 1.20 ng/dL Normal 0.76-1.46 [facility] Comment on above: Order Comment: Order Date: 10/19/24 Order Info: 0786-1 - CMP Order Info: [id number] - LIPID Order Info: [id number] - TSH Order Info: 3024-7 - T4F Performed By: #### L 100.0100, L501.9520, L500.4100, L506.0400, L500.4050 #### [facility] [place] [address], [address] T4 freeOrdered By: Adal choe on 10-19-2024 Free T4 [Mass/Vol] 1.20 ng/dL 0.76-1.46 [facility] TSH DL <= 0.005 mIU/L QnOrde red By: Adal Montejo on 10-19-2024 TSH Qn 2.020 uIU/mL 0.300-4.200 [facility] Thyroid Stim Hormone (TSH)on 10-19-2024 TSH 2.020 uIU/mL Normal 0.300-4.200 [facility] Comment on above: Order Comment: Order Date: 10/19/24 Order Info: 0786-1 - CMP Order Info: [id number] - LIPID Order Info: [id number] - TSH Order Info: 3024-7 - T4F Performed By: #### L 100.0100, L501.9520, L500.4100, L506.0400, L500.4050 #### [facility] [address] [place], [place], [id number] Total proteinOrdered By: Spencer Montejo on 10-19-2024 Protein [Mass/Vol] 7.4 g/dL 5.9-8.4 [facility] Triglycerides measurementOrd ered By: Adal Montejo on 10-19-2024 Triglyceride [Mass/Vol] 110 mg/dL <199 [facility] Comment on above: The drugs N-Acetylcy steine and Metamizole may falsely depress this assay. Normal range: <150 mg/dLBorderline High: 150-199 mg/dLHigh: 200-499 mg/dLVery High: >500 mg/dL Urinalysis, Completeon 10-19 EPI,SQUAMOUS 0-5 SEEN Normal 5-10 [facility] Comment on above: Order Comment: CLEAN CATCH Performed By: #### L 400.0001 #### [facility] [address] [place], [address] BACTERIA 0 SEEN Normal None Seen [facility] Comment on above: Order Comment: CLEAN CATCH Performed By: #### L 400.0001 #### [facility] [address] [place], [address] Mucus Ql (Urine sed) 0 SEEN Normal [facility] Comment on above: Order Comment: CLEAN CATCH Performed By: #### L 400.0001 #### [facility] [address] [place], [address] RBC 0 SEEN Normal 0-5 [facility] Comment on above: Order Comment: CLEAN CATCH Performed By: #### L 400.0001 #### [facility] [address] [place], [address] WBC 0 SEEN Normal 0-5 [facility] Comment on above: Order Comment: CLEAN CATCH Performed By: #### L 400.0001 #### [facility] [address] [place], [place], [id number] Urine clarityOrdered By: Spencer Montejo on 10-19-2024 Clarity (U) Clear Clear [facility] Urine color determinationOrd ered By: Adal Montejo on 10-19-2024 Color (U) Yellow Yellow [facility] Urine glucose detectionOrder ed By: Adal Montejo on 10-19-2024 Glucose Ql (U) Normal mg/dl Normal [facility] Urine leukocyte esterase det ection by dipstickOrdered By: Adal Montejo on 10-19-2024 Leukocyte esterase Test strip Ql (U) Negative Negative [facility] Urine pHOrdered By: Adal ling on 10-19-2024 pH (U) 7.0 [pH] 5.0 - 8.0 [facility] Urine sediment bacteria coun t by microscopy (number/high power field)Ordered By: Adal Montejo on 10-19-2024 Bacteria LM.HPF (Urine sed) [#/Area] 0 /[HPF] None Seen [facility] Urine specific gravity measu rementOrdered By: Adal Montejo on 10-19-2024 Specific gravity (U) [Rel density] 1.010 1.002-1.030 [facility] Urine urobilinogen measureme ntOrdered By: Adal Montejo on 10-19-2024 Urobilinogen Ql (U) Normal mg/dl Normal [facility] Vitamin B12on 10-19-2024 Cobalamin (Vitamin B12) [Mass/Vol] 1530 pg/mL High 180-914 [facility] Comment on above: Order Comment: Order Date: 10/19/24 Order Info: [id number] - CMP Order Info: [id number] - LIPID Order Info: 3 - TSH Order Info: 3023-10 T4F Performed By: #### L 506.1001, L503.0106, L3890.6301, L3890.6102 #### [facility] [address] [place], [address] Vitamin B12 ser/plasOrdered By: Adal Montejo on 10-19-2024 Cobalamin (Vitamin B12) [Mass/Vol] 1530 pg/mL High 180-914 [facility] Vitamin D,25 Hydroxyon 10-19 Vitamin D 25-OH 79.4 ng/mL Normal 30-100 [facility] Comment on above: Order Comment: Order Date: 10/19/24 Order Info: [id number] - CMP Order Info: [id number] - LIPID Order Info: [id number] - TSH Order Info: 3023-10 - T4F Result Comment: Catherine min D Status Deficiency: <20 ng/mL (50nmol/L) Insufficiency: 20-30 ng/mL (50-75 nmol/L) Sufficiency: 30-100 ng/mL (75-250 nmol/L) Toxicity: >100 ng/mL (>250 nmol/L) Performed By: #### L 506.1001, L503.0106, L3890.6301, L3890.6102 #### [facility] [address] [place], [address] White blood cell (WBC) count Ordered By: Adal Montejo on 10-19-2024 WBC (Bld) [#/Vol] 6.9 10*3/uL 4.4-11.0 [facility] White blood cell countOrdere d By: Adal Montejo on 10-19-2024 White blood cell count 0 SEEN /hpf 0-5 [facility] Encounters Encounter Date Encounter Type Care Provider Facility Start: 11-10-2024 ambulatory Adal Montejo Facilit y:[facility] Start: 11-09-[address] LEANN AL MD Fa cility:A Start: 11-02-2024 End: 11-02-[address] Adal Montejo MD Work Phone: -[facility] Start: 11-02-2024 End: 11-02-[address] Adal Montejo MD [facility] Work Phone: Start: 11-01-2024 End: 11-02-[address] Adal Montejo MD Work Phone: -Laboratory [facility] Start: 11-01-2024 End: 11-01-[address] Adal Montejo MD -[facility] Start: 11-01-2024 End: 11-01-2024 ambulatory Adal Montejo Facility:[facility] Start: 10-19-[address] Adal Montejo MD -[facility] Start: 10-19-2024 ambulatory Adal Montejo Facilit y:[facility] Procedures Date Procedure Procedure Detail Performing Clinician Start: 11-02-2024 Screening mammography Broderick Montejo MD Work Phone: Start: 11-01-2024 [address] C antibody measurement Dr. Adal Montejo MD Work Phone: Comment on above: Reactive: Presumptiv e evidence of antibodies to HCV. Follow CDC recommendations for supplemental testing.Non-Reactive: Antibodies to HCV were not detected; does not exclude the possibility of exposure to HCVReactive Results are presumptive evidence of antibodies to HCV. Follow CDC recommendations for supplemental testing.Order confirmation testing: HCV Quant by PCR testing - HCVPCR #[id number] Non Reactive: < 0.8 Equivocal: >/= 0.8 to < 1.0 Reactive: >/= 1.0The CDC requires that a reactive/equivocal HCV antibody result be sent out for confirmation. HCV Quant by PCR testing. Start: 10-19-2024 Urnls dip stick/tabl et reagent auto microscopy Dr. Adal Montejo MD Work Phone: Start: 10-19-2024 Hepatitis C antibody measurement Dr. Adal Montejo MD Work Phone: Comment on above: Reactive: Presumptiv e evidence of antibodies to HCV. Follow CDC recommendations for supplemental testing.Non-Reactive: Antibodies to HCV were not detected; does not exclude the possibility of exposure to HCVReactive Results are presumptive evidence of antibodies to HCV. Follow CDC recommendations for supplemental testing.Order confirmation testing: HCV Quant by PCR testing - HCVPCR #[id number] Non Reactive: < 0.8 Equivocal: >/= 0.8 to < 1.0 Reactive: >/= 1.0The CDC requires that a reactive/equivocal HCV antibody result be sent out for confirmation. HCV Quant by PCR testing. Start: 10-19-2024 Vitamin D, 25-hydrox y measurement Dr. Adal Montejo MD Work Phone: Comment on above: Vitamin D StatusDefi ciency: <20 ng/mL (50nmol/L)Insufficiency: 20-30 ng/mL (50-75 nmol/L)Sufficiency: 30-100 ng/mL (75-250 nmol/L)Toxicity: >100 ng/mL (>250 nmol/L) Payers Date Payer Category Payer Self-pay 2024 Unknown [id number] 1970 Unknown [id number] Unknown [id number] Unknown [id number] [id number] Unknown [id number] [id number] [id number] Unknown [id number] [id number] Social History Date Type Detail [facility] Work Phone: Start: 1970 Sex Assigned At Female [facility] Evaluation note Note Date & Type Note Facility Evaluation note No assessment information availa ble [facility] Work Phone: Reason for referral (narrative) Note Date & Type Note Facility Reason for referral (narrative) No reason for referral information available [facility] Work Phone: Chief Complaint and Reason for Visit Chief Complaint Admit Date SCREENING November 02, 2024 11:0 5am Summary Purpose Family History No Family History Records FoundNo Family History Records Found Advance Directives No Advanced Directives Records FoundNo Advanced Directives Records Found Additional Source Comments Care Teams (unrecognized sec tion and content) Team Status: Active Member Role/Relationship Status Dates Dr. Adal Montejo MD Primary Care Provider Active Team Status: Active Member Role/Relationship Status Dates Dr. Adal Montejo MD Primary Care Provider Active Start: October 19, 2024 Dr. Adal Montejo MD Attending Provider Active Start: October 19, 2024 Dr. Adal Montejo MD Referring Provider Active Start: October 19, 2024 Team Status: Inactive Member Role/Relationship Status Dates Dr. Adal Montejo MD Primary Care Provider Active Start: November 01, 2024 End: November 01, 2024 Dr. Adal Montejo MD Attending Provider Active Start: November 01, 2024 End: November 01, 2024 Dr. Adal Montejo MD Referring Provider Active Start: November 01, 2024 End: November 01, 2024 Team Status: Active Member Role/Relationship Status Dates Dr. Adal Montejo MD Primary Care Provider Active Start: November 02, 2024 Dr. Adal Montejo MD Attending Provider Active Start: November 02, 2024 Dr. Adal Montejo MD Referring Provider Active Start: November 02, 2024 Team Status: Inactive Member Role/Relationship Status Dates Dr. Adal Montejo MD Primary Care Provider Active Start: November 02, 2024 End: November 02, 2024 Dr. Adal Montejo MD Attending Provider Active Start: November 02, 2024 End: November 02, 2024 Dr. Adal Montejo MD Referring Provider Active Start: November 02, 2024 End: November 02, 2024 Goals (unrecognized section and content) Goals may be documented in a n alternate sectionGoals may be documented in an alternate section INFORMATION SOURCE (unrecogn ized section and content) DATE CREATED AUTHOR 11/12/2024 [facility] DATE CREATED AUTHOR AUTHOR'S BENIGNO CHIU 11/13/2024 [facility] FOR RECORDS PERTAINING TO PATIENTS WHO ARE OR HAVE BEEN ENROLLED IN A CHEMICAL DEPENDENCY/SUBSTANCEABUSE PROGRAM, SOME INFORMATION MAY BE OMITTED. This clinical summary was aggregated from multiple sources. Caution should be exercised in using it in the provision of clinical care. This summary normalizes information from multiple sources, and as a consequence, information in this document may materially change the coding, format and clinical context of patient data. In addition, data may be omitted in some cases. CLINICAL DECISIONS SHOULD BE BASED ON THE PRIMARY CLINICAL RECORDS. [employer] provides no warranty or guarantee of the accuracy or completeness of information in this document.
== END | disposition home or self-care (01) ==
LOC: MFPLAB 10:38
PROVIDERS: PCP Family Medicine; Referring Provider Family Medicine; Visit Provider Family Medicine
DX: R53.83 Other fatigue (principal)
CPT/HCPCS: 36415; 80053